=== PATIENT | female | born 1990 | race Caucasian/White ===

== ENCOUNTER 2018-02-25 21:40 | Emergency (ER) | payer SELFPAY ==
--- NOTE | 2018-02-25 21:56 | Emergency Department Record ---
History of Present Illness - General Chief Complaint: Neck Injury/Pain Stated Complaint: STIFF/PAIN NECK Time Seen by Provider: 02/25/18 21:42 Source: Patient Mode of Arrival: Ambulatory Limitations: No limitations - History of Present Illness Initial Comments: 27 yo female presents to ED for evaluation of right sided neck pain symptoms that began upon awakening yesterday morning. Patient denies upper extremity weakness symptoms, does report pain with movement and intermittent "tingling" to the right hand. Patient denies traumatic injury or health problems at her baseline. Patient reports taking Tylenol for her pain symptoms without significant improvement. MD Complaint: Neck pain Onset/Timin -: Awoke with symptoms Place: Home Severity: Moderate Quality: Sharp (with turning of the head) Consistency: Constant Improves With: Immobilization Worsens With: Movement of neck Context: Unknown Associated Symptoms: Tingling Treatments Prior to Arrival: Acetaminophen - Related Data Home Medications Medication Instructions Recorded Confirmed Last Taken Control 1 tab PO DAILY 02/25/18 Unknown Previous Rx's Medication Instructions Recorded Naproxen [Naprosyn] 500 mg PO Q12H #30 tab. 02/25/18 Allergies Allergy/AdvReac Type Severity Reaction Status Date / Time No Known Drug Allergies Allergy Verified 02/25/18 21:54 Review of Systems Constitutional: Denies: Chills, Fever, Malaise, Night sweats Eyes: Denies: Eye discharge, Eye pain, Photophobia ENT: Denies: Congestion, Dental pain, Ear pain Respiratory: Denies: Cough, Dyspnea Cardiovascular: Denies: Chest pain, Dyspnea on exertion Endocrine: Denies: Fatigue, Heat or cold intolerance Gastrointestinal: Denies: Abdominal pain, Nausea, Vomiting Genitourinary: Denies: Incontinence, Retention Musculoskeletal: Reports: Neck pain Skin: Denies: Bruising, Change in color, Change in hair/nails Neurological: Denies: Abnormal gait, Confusion, Headache, Seizure Psychiatric: Denies: Anxiety Hematological/Lymphatic: Denies: Anemia, Blood Clots Physical Exam - General General Appearance: Alert, Oriented x3, Cooperative, Mild distress Limitations: No limitations - Head Head exam: Atraumatic, Normocephalic, Normal inspection Head exam detail: negative: Abrasion, Contusion, Cortes's sign, General tenderness, Hematoma, Laceration - Eye Eye exam: Normal appearance. negative: Conjunctival injection, Periorbital swelling, Periorbital tenderness, Scleral icterus - ENT Ear exam: negative: Auricular hematoma, Auricular trauma Nasal Exam: negative: Active bleeding, Discharge, Dried blood, Foreign body Mouth exam: negative: Drooling, Laceration, Muffled voice, Tongue elevation - Neck Neck exam: Tenderness, Other (Mild TTP to the right paracervical muscles). negative: Meningismus - Respiratory Respiratory exam: Normal lung sounds bilaterally. negative: Rales, Respiratory distress, Rhonchi, Stridor - Cardiovascular Cardiovascular Exam: Regular rate, Normal rhythm, Normal heart sounds - GI/Abdominal GI/Abdominal exam: Soft. negative: Rebound, Rigid, Tenderness - Rectal Rectal exam: Deferred - exam: Deferred - Extremities Extremities exam: Normal inspection. negative: Calf tenderness, Pedal edema, Tenderness - Back Back exam: Denies: CVA tenderness (R), CVA tenderness (L) - Neurological Neurological exam: Alert, Normal gait, Oriented X3 - Psychiatric Psychiatric exam: Normal affect, Normal mood - Skin Skin exam: Normal color. negative: Abrasion Type of lesion: negative: abrasion Course - Reevaluation(s) Reevaluation #1: 02/25/18 22:02 Patient was seen and examined layer off strength 5/5 and symmetric Symptoms appear c/w paracervical strain. Will treat with Naprosyn as directed. Disposition Disposition: Discharge Clinical Impression: Cervical strain, acute Qualifiers: Encounter type: initial encounter Qualified Code(s): S16.1XXA - Strain of muscle, fascia and tendon at neck level, initial encounter Disposition: Home, Self-Care Condition: (2) Stable Instructions: Cervical Sprain (ED) Additional Instructions: Return to ED if your symptoms worsen or if you have any concerns. Naprosyn as directed. Follow-up with your family doctor in 3-5 days as directed. Prescriptions: Naproxen [Naprosyn] 500 mg PO Q12H #30 tab.dr Forms: Patient Portal Access Time of Disposition: 21:56 Quality - Quality Measures Quality Measures: N/A - Blood Pressure Screening Does Patient Have Any of the Following: No Blood Pressure Classification: Pre-Hypertensive BP Reading Systolic Measurement: 128 Diastolic Measurement: 75 Screening for High Blood Pressure: < Pre-Hypertensive BP, F/U Documented > [ [id number]] Pre-Hypertensive Follow-up Interventions: Referral to alternative/primary care provider.
[2018-02-25] MEDS ORDERED: NAPROXEN 250 MG TABLET PO ONE ×2 (21:58→22:19)
[2018-02-25] MEDS ORDERED: ONDANSETRON 4 MG ODT TABLET SL ONE (22:11)
== END 2018-02-25 22:22 | disposition home or self-care (01) ==
LOC: ER 21:40
DX: S16.1XXA Strain of muscle, fascia and tendon at neck level, initial encounter (principal); R20.2 Paresthesia of skin; X58.XXXA Exposure to other specified factors, initial encounter; Y92.009 Unspecified place in unspecified non-institutional (private) residence as the place of occurrence of the external cause
CPT/HCPCS: 99282

== ENCOUNTER 2018-04-28 12:17 | Emergency (ER) | payer SELFPAY ==
[2018-04-28 13:09] LABS: BASO % 0.4 % (0-6); EOS % 1.8 % (0-6); GRAN % 64.2 % (47-80); HEMATOCRIT 37.7 % (35.0-47.0); HEMOGLOBIN 13.1 gm/dl (11.6-16.0); MEAN CELL VOLUME 86.7 fl (81-97); MEAN CORPUSCULAR HEMOGLOBIN 30.1 pg (27-33); MEAN CORPUSCULAR HGB CONC 34.7 g/dl (32-36); MEAN PLATELET VOLUME 11.6 fl (7.4-10.4); MONO % 6.6 % (0-9); PLATELET COUNT 187 K/uL (130-400); RED BLOOD COUNT 4.35 M/uL (3.80-5.40); RED CELL DISTRIBUTION WIDTH 12.8 % (11.5-14.5); WHITE BLOOD COUNT W/O DIFF 7.7 K/uL (4.2-12.2)
--- NOTE | 2018-04-28 15:53 | Emergency Department Record ---
History of Present Illness - General Chief complaint: complication Stated complaint: VAG BLEEDING/CRAMPING Time Seen by Provider: 04/28/18 12:41 Source: Patient Mode of Arrival: Ambulatory Limitations: No limitations - History of Present Illness Initial comments: pt had a positive test last week. pt started spotting a few days ago and is having lower abd pain. she is a5. MD Complaint: Abdominal pain, Vaginal bleeding Onset/Timin -: Days(s) Location: Abdomen Radiation: None Consistency: Intermittent Improves with: None Worsens with: None Associated symptoms: Vaginal bleeding Vaginal bleeding: Light LMP (females 10-50): Unknown Pre- care: None - Related Data : 3 Para: 1 Ab: 1 Home Medications Medication Instructions Recorded Confirmed Last Taken No Home Med [NO HOME MEDS] 04/28/18 04/28/18 Unknown Allergies Allergy/AdvReac Type Severity Reaction Status Date / Time No Known Drug Allergies Allergy Verified 02/25/18 21:54 Review of Systems Reviewed: No additional complaints except as noted below Constitutional: Reports: As per HPI. Denies: Chills, Fever, Malaise, Night sweats, Weakness, Weight change Eyes: Reports: As per HPI. Denies: Eye discharge, Eye pain, Photophobia, Vision change ENT: Reports: As per HPI. Denies: Congestion, Dental pain, Ear pain, Epistaxis , Hearing loss, Throat pain Respiratory: Reports: As per HPI. Denies: Cough, Dyspnea, Hemoptysis, Stridor, Wheezes Cardiovascular: Reports: As per HPI. Denies: Arrhythmia, Chest pain, Dyspnea on exertion, Edema, Murmurs, Orthopnea, Palpitations, Paroxysmal nocturnal dyspnea, Rheumatic Fever, Syncope Endocrine: Reports: As per HPI. Denies: Fatigue, Heat or cold intolerance, Polydipsia, Polyuria Gastrointestinal: Reports: As per HPI. Denies: Abdominal pain, Constipation, Diarrhea, Hematemesis, Hematochezia, Melena, Nausea, Vomiting Genitourinary: Reports: As per HPI. Denies: Abnormal menses, Discharge, Dyspareunia, Dysuria, Frequency, Hematuria, Incontinence, Retention, Urgency Musculoskeletal: Reports: As per HPI. Denies: Arthralgia, Back pain, Gout, Joint swelling, Myalgia, Neck pain Skin: Reports: As per HPI. Denies: Bruising, Change in color, Change in hair/ nails, Lesions, Pruritus, Rash Neurological: Reports: As per HPI. Denies: Abnormal gait, Confusion, Headache, Numbness, Paresthesias, Seizure, Tingling, Tremors, Vertigo, Weakness Psychiatric: Reports: As per HPI. Denies: Anxiety, Auditory hallucinations, Depression, Homicidal thoughts, Suicidal thoughts, Visual hallucinations Hematological/Lymphatic: Reports: As per HPI. Denies: Anemia, Blood Clots, Easy bleeding, Easy bruising, Swollen glands Past Medical History - SOCIAL HISTORY Smoking Status: Never smoker - QA TEST LEAD History : 3 Para: 1 A: 1 - RESPIRATORY Hx Respiratory Disorders: No - CARDIOVASCULAR Hx Cardio Disorders: No - NEURO Hx Neuro Disorders: No - GI Hx GI Disorders: No - Hx Genitourinary Disorders: No - ENDOCRINE Hx Endocrine Disorders: No - MUSCULOSKELETAL Hx Musculoskeletal Disorders: No - PSYCH Hx Psych Problems: No - HEMATOLOGY/ONCOLOGY Hx Hematology/Oncology Disorders: No Family Medical History Any Significant Family History?: No Physical Exam - General General Appearance: Alert, Oriented x3, Cooperative, No acute distress - Head Head exam: Normal inspection - Eye Eye exam: Normal appearance, PERRL, EOMI Pupils: Normal accommodation - ENT ENT exam: Normal exam, Mucous membranes moist, Normal external ear exam, Normal orophraynx Ear exam: Normal external inspection. negative: External canal tenderness Nasal Exam: Normal inspection. negative: Discharge, Sinus tenderness Mouth exam: Normal external inspection, Tongue normal Teeth exam: Normal inspection. negative: Dental caries Throat exam: Normal inspection. negative: Tonsillar erythema, Tonsillar exudate - Neck Neck exam: Normal inspection, Full ROM. negative: Tenderness - Respiratory Respiratory exam: Normal lung sounds bilaterally. negative: Respiratory distress - Cardiovascular Cardiovascular Exam: Regular rate, Normal rhythm, Normal heart sounds - GI/Abdominal GI/Abdominal exam: Soft, Normal bowel sounds, Tenderness - Rectal Rectal exam: Deferred - exam: Deferred - Extremities Extremities exam: Normal inspection, Full ROM, Normal capillary refill. negative: Tenderness - Back Back exam: Reports: Normal inspection, Full ROM. Denies: Muscle spasm, Rash noted, Tenderness - Neurological Neurological exam: Alert, Normal gait, Oriented X3, Reflexes normal - Psychiatric Psychiatric exam: Normal affect, Normal mood - Skin Skin exam: Dry, Intact, Normal color, Warm Course Vital Signs 04/28/18 12:24 Temperature 98.7 F Pulse Rate 96 H Respiratory 20 Rate Blood Pressure 116/68 Pulse Ox 97 - Reevaluation(s) Reevaluation #1: 04/28/18 15:55 us shows iup, 5wks w heartbeat Medical Decision Making - Lab Data Result diagrams: 04/28/18 13:00 Lab Results 04/28/18 04/28/18 04/28/18 Range/Units 13:00 13:00 13:00 WBC 7.7 (4.2-12.2) K/uL RBC 4.35 (3.80-5.40) M/uL Hgb 13.1 (11.6-16.0) gm/dl Hct 37.7 (35.0-47.0) % MCV 86.7 (81-97) fl MCH 30.1 (27-33) pg MCHC 34.7 (32-36) g/dl RDW 12.8 (11.5-14.5) % Plt Count 187 (130-400) K/uL MPV 11.6 H (7.4-10.4) fl Gran % 64.2 (47-80) % Lymphocytes % 27.0 (16-45) % Monocytes % 6.6 (0-9) % Eosinophils % 1.8 (0-6) % Basophils % 0.4 (0-6) % Total Beta HCG 23844 mIU/mL Rh Factor Negative Disposition Disposition: Discharge Clinical Impression: Threatened in first trimester Disposition: Home, Self-Care Condition: (1) Good Instructions: Threatened Miscarriage (ED) Additional Instructions: follow up with ob doctor harris. return sooner if worse. no intercourse for 2 weeks Quality - Quality Measures Quality Measures: N/A - Blood Pressure Screening Does Patient Have Any of the Following: No Blood Pressure Classification: Normal BP Reading Systolic Measurement: 116 Diastolic Measurement: 68 Screening for High Blood Pressure: < Normal BP, F/U Not Required > [G8783]
--- NOTE | 2018-04-30 12:38 | ULTRASOUND REPORT ---
EXAM: ULTRASOUND OB PELV W TV - EARLY (4-13wks) HISTORY: FIRST TRIMESTER . TECHNIQUE: Transvaginal and transabdominal sonographic evaluation of the first trimester was performed with the addition of Doppler and spectral analysis. FINDINGS: The uterus is normal in position. The uterus measures 10.1 x 6.4 x 4.6 cm. There is a single live intrauterine with sonographic age of 5 weeks, 6 days. Kosse-rump length corresponds to 6 weeks, 4 days. heart tones are 120 beats per minute. The placenta is still forming. It is likely posterior in origin. The amniotic fluid volume is subjectively normal. The right ovary measures 2.7 x 3.2 x 1.5 cm. The left ovary measures 3.2 x 2.5 x 2.2 cm. There is normal arterial and venous flow to both ovaries. IMPRESSION: 1. SINGLE LIVE INTRAUTERINE WITH SONOGRAPHIC AGE OF 5 WEEKS, 6 DAYS. HEART TONES 120 BEATS PER MINUTE. 2. THE PLACENTA IS LIKELY LOCATED POSTERIOR. THE PLACENTA IS STILL FORMING. JOB NUMBER: [id number] [facility]
== END 2018-04-28 16:07 | disposition home or self-care (01) ==
LOC: ER 12:17
DX: O20.0 Threatened abortion (principal); Z3A.01 Less than 8 weeks gestation of pregnancy; Z67.91 Unspecified blood type, Rh negative
CPT/HCPCS: 76801; 76817; 84702; 85025; 86901; 99284